=== PATIENT | female | born 1990 ===

== ENCOUNTER → 2023-01-27 | Outpatient (CLI) | payer OTHER ==
[2023-01-27 16:09] LABS: Source, Urine Clean Catch
[2023-01-27 17:09] LABS: Appearance, Urine Clear (Clear); Bilirubin, Urine Neg (Neg); Blood, Urine Neg (Neg); Glucose Qualitative, Urine Neg (Neg); Ketones, Urine Neg (Neg); Leukocyte Esterase, Urine Neg (Neg); Nitrite, Urine Neg (Neg); Protein, Urine Neg (Neg); Urobilinogen, Urine NORM (Normal)
[2023-01-27 17:43] LABS: Color, Urine Pale Yellow (P-Yellow)
[2023-01-27 17:49] LABS: U Amphetamine Screen Not Detected; U Barbituate Screen Not Detected; U Benzodiazapine Screen Not Detected; U Buprenorphine Screen Not Detected; U Cannabinoids Screen Not Detected; U Cocaine Screen Not Detected; U Methadone Screen Not Detected; U Methamphetamine Screen Not Detected; U Opiates Screen Not Detected; U Oxycodone Screen Not Detected; U Phencyclidine Screen Not Detected; U Propoxyphene Screen Not Detected
== END ==
LOC: LAB SHORT 13:45 → LAB 13:45
PROVIDERS: Obstetrics & Gynecology
DX: Z34.81 Encounter for supervision of other normal pregnancy, first trimester (principal)
CPT/HCPCS: 81003; 87086